=== PATIENT | female | born 1945 | race Caucasian/White ===

== ENCOUNTER → 2016-07-04 | Outpatient (CLI) | payer OTHER, MEDICARE ==
[~2016-07-04] MED LIST: DIPH1TAB87 PO; EPP3/2 IM; ZNTT/150 PO
--- NOTE | 2016-07-04 16:38 | MAMMOGRAPHY REPORT ---
BILATERAL DIGITAL SCREENING MAMMOGRAM WITH CAD: 07/04/2016 CLINICAL HISTORY: Routine screening examination. TECHNIQUE: Bilateral CC and MLO views were obtained. Current study was also evaluated with a Comput er Aided Detection (CAD) system. COMPARISON: Comparison is made to exams dated: 06/18/2015 mammogram, 05/09/2014 mammogram, 04/15/2013 m ammogram, 04/01/2013 mammogram, 02/20/2012 mammogram, and 01/21/2011 mammogram - [facility]. BREAST COMPOSITION: There are scattered areas of fibroglandular density in both breasts. FINDINGS: The parenchymal pattern is similar to prior mammograms. No developing mass, architectura l distortion or cluster of suspicious microcalcifications is seen in either breast. IMPRESSION: ACR BI-RADS CATEGORY 2: BENIGN There is no mammographic evidence of malignancy. A 1 year screening mammogram is recommended. The p atient will receive written notification of the results. Approximately 10% of breast cancers are not detected with mammography. A negative mammographic repor t should not delay biopsy if a clinically suggestive mass is present. Samaria Melendez M.D. ay/:07/04/2016 16:07:56 [employer] Meat Presser: Summer CHUNG(Veronica)(Rey), [facility] letter sent: Normal 1/2 BI-RADS Code: ACR BI-RADS Category 2: Benign
== END | disposition home or self-care (01) ==
LOC: C.MAMM 08:44
PROVIDERS: ATTEND Family Medicine
DX: Z12.31 Encounter for screening mammogram for malignant neoplasm of breast (principal)

== ENCOUNTER → 2016-07-29 | Outpatient (CLI) | payer OTHER, MEDICARE ==
[2016-07-29 13:39] LABS: URINE APPEARANCE CLEAR (CLEAR); URINE BILIRUBIN NEG (NEG); URINE COLOR YELLOW; URINE EPITHELIAL CELL AUTO 0-5 /lpf (0-5); URINE NITRITE NEG (NEG); URINE SPECIFIC GRAVITY 1.011 (1.000-1.030); UROBILINOGEN NEG (NEG)
[2016-07-29 13:44] LABS: MANUAL MICROSCOPIC REQUIRED? NO; REVIEW REQ? NO
== END | disposition home or self-care (01) ==
LOC: C.LABMFLN 10:46
PROVIDERS: ATTEND Family Medicine
DX: R30.0 Dysuria (principal)

== ENCOUNTER → 2016-08-15 | Outpatient (CLI) | payer OTHER, MEDICARE ==
[2016-08-15 17:58] LABS: URINE APPEARANCE CLEAR (CLEAR); URINE BILIRUBIN NEG (NEG); URINE COLOR YELLOW; URINE NITRITE NEG (NEG); URINE PH 5.5 (4.5-7.5); URINE SPECIFIC GRAVITY 1.018 (1.000-1.030); UROBILINOGEN NEG (NEG)
[2016-08-15 18:03] LABS: MANUAL MICROSCOPIC REQUIRED? NO; REVIEW REQ? YES
== END | disposition home or self-care (01) ==
LOC: C.LABMFLN 18:22
PROVIDERS: ATTEND Family Medicine
DX: R31.29 Other microscopic hematuria (principal)

== ENCOUNTER → 2016-11-14 | Outpatient (CLI) | payer OTHER, MEDICARE | END | disposition home or self-care (01) | LOC: C.PAPS 08:58 | PROVIDERS: ATTEND Obstetrics & Gynecology | DX: Z12.4 Encounter for screening for malignant neoplasm of cervix (principal) ==

== ENCOUNTER → 2017-03-13 | Day surgery (SDC) | payer OTHER, MEDICARE ==
[2017-02-16 15:42] VITALS: Ht 165.1 cm; Wt 80.5 kg
--- NOTE | 2017-03-10 08:27 | HISTORY & PHYSICAL EXAMINATION ---
DATE OF ADMISSION: 03/13/2017 The patient is for a surgery on 03/13/2017. CHIEF COMPLAINT: Thickened endometrium. HISTORY OF PRESENT ILLNESS: The patient is a 71-year-old old white female 1, para 0 who has been menopausal since age 40. The patient underwent a CT scan in 2014 and was noted to have a thickened endometrial lining. Ultrasound done in March 2015 confirmed this and showed a lining of anywhere from 11-14 mm. No further evaluation was done until repeat ultrasound in November 2016 and the endometrial lining was noted to be 12 mm with some cystic changes. A mass cannot be ruled out and is indeed suspected. The patient denies any vaginal bleeding or pelvic pain. We have discussed the options of continued expectant management as she is asymptomatic versus confirmation of the mass with hysterosonogram versus proceeding to hysteroscopy, D&C. The patient did have a Pap smear in November 2016 and this is negative. She has no family history of uterine cancer. ALLERGIES: THE PATIENT REPORTS ALLERGIES TO CIPRO, PENICILLINS, SULFA DRUGS, EGGS, LATEX, PEANUTS AND SHELLFISH. MEDICATIONS: She takes amlodipine 5 mg 1 tablet daily, ranitidine 300 mg 1 tablet daily as needed. She also uses Premarin vaginal cream every other night in addition to Proctosol HC 2.5% rectal cream applied 3 times daily as needed and also she has an EpiPen to use should she develop an allergic reaction. PAST SURGICAL HISTORY: She is status post laparoscopic cholecystectomy. She has also had an ovarian cystectomy in the past as well as D&C. She has had wisdom teeth removed as well. She had retina surgery in 2008 and surgery for cataract in 2014. ILLNESSES: The patient has had cervical radiculopathy. She also has a history of colon polyps. She does have a history of GERD as well as a history of hypertension and hyperlipidemia. FAMILY HISTORY: Her mother had heart disease. Her father had colon polyps and also history of myocardial infarction. SOCIAL HISTORY: The patient drinks 2 alcoholic drinks per month. She was a smoker, but quit smoking in 1992. PHYSICAL EXAMINATION: VITAL SIGNS: Height 5 feet 5 inches, weight 178 pounds, blood pressure 162/90. HEENT: Grossly within normal limits. NECK: Supple without masses. CHEST: Her lungs are clear with no wheezing. HEART: Regular rate and rhythm. No murmurs, gallops or rubs. ABDOMEN: Soft and nontender with no masses or hernias. PELVIC: External genitalia normal. Vagina pink and smooth. Cervix was normal with no unusual discharge. Uterus within normal limit size, nontender, adnexa nontender with no masses palpable. EXTREMITIES: No cyanosis, clubbing or edema. IMPRESSION: A 71-year-old menopausal white female with thickened endometrium with a suggestion of endometrial mass. PLAN: The patient is for hysteroscopy, dilation of the cervix and curettage with possible removal of polyp/lesion. The patient is aware of the risks of bleeding, infection, perforation of the uterus, possible need for further treatment. I did discuss with her that her risk of surgery and her benefit may be about equal. The patient prefers to proceed with the surgery. She feels she would prefer to take the risks of surgery for a definitive diagnosis. ROXY
[~2017-03-13] VITALS: Ht 165.1 cm; Wt 80.5 kg
[~2017-03-13] MED LIST changes: +AMLO-110 PO; +ATROPINE SULFATE 0.1 MG/ML 5ML SYR IV PRN; +DEXAMETHASONE SOD INJ 4 MG/ML VIAL ONE; +EpHEDrine SULFATE INJ 50 MG/ML AMP IV PRN; +FENTANYL CITRATE INJ 50 MCG/1 ML 2 ML VIAL IV PRN; +FENTANYL CITRATE INJ 50 MCG/1 ML 2 ML VIAL ONE; +HYDROmorphone INJ 1 MG/ML SYR IV PRN; +IBUPROFEN 200 MG TAB ONE; +IBUPROFEN 600 MG TAB PO PRN; +LACTATED RINGER'S 1000ML 1,000 ML IV SCH; +LIDOCAINE HCL 2% 2 ML VIAL (20MG/ML) ONE; +MIDAZOLAM HCL 1 MG/ML 2ML VIAL ONE; +ONDANSETRON INJ 2 MG/ML 2 ML VIAL IV PRN; +ONDANSETRON INJ 2 MG/ML 2 ML VIAL ONE; +PROPOFOL IV EMULSION 10 MG/ML 20 ML VIAL IV ONE; +SODIUM CHLORIDE 0.9% 1000ML 1,000 ML IV SCH
--- NOTE | 2017-03-13 06:53 | History & Physical Bridge - SC ---
H&P Re-Evaluation Bridge Note: I have examined the patient, reviewed the History & Physical and in the interval since the performance of the History & Physical I have noted the following changes of clinical significance: No changes noted
--- NOTE | 2017-03-13 07:35 | [facility] Post Operative Brief Note ---
Immediate Operative Summary Operative Date Mar 13, 2017. Pre-Operative Diagnosis Thickened endometrium Post-Operative Diagnosis Same as preop Procedure(s) Performed Dilatation And Curettage, Hysteroscopy Surgeon Dr. Poe Energy Conservation Specialist Surgeon(s) None Estimated Blood Loss 20 mL Findings See dictated note. Specimens A: Endocervical curettings B: Endometrial curettings Complication(s) None Disposition Recovery Room / PACU
--- NOTE | 2017-03-13 07:45 | Discharge Instructions-SurgCtr ---
Discharge Instructions Date of Service Mar 13, 2017. Visit Reason for Visit: Thickened Endometrium Discharge Discharge Diagnosis / Problem: S/P Hysteroscopy, Dilation and Curettage Discharge Goals Goal(s): Diagnostic testing Activity Recommendations Activity Limitations: per Instructions/Follow-up section Anesthesia . Post Anesthesia Instructions: If you have had General Anesthesia or IV Sedation: * Do not drive today. * Resume driving when surgeon permits. * Do not make important decisions or sign legal documents today. * Call surgeon for: 1. Temperature elevations greater than 101 degrees F. 2. Uncontrollable pain. 3. Excessive bleeding. 4. Persistent nausea and vomiting. 5. Medication intolerance (nausea, vomiting or rash). * For nausea and vomiting use only clear liquids such as: tea, soda, bouillon until nausea subsides, then gradually increase diet as tolerated. * If you have any concerns or questions, call your surgeon's office. If physician is unavailable and it is an emergency, call 911 or go to the nearest emergency room. . Instructions / Follow-Up Instructions / Follow-Up ACTIVITY RECOMMENDATIONS: * Avoid tampons, douching, hot tubs, pools, and intercourse until bleeding has stopped. * May shower as usual. * No strenuous activity for 24-48 hours. After 24-48 hours, you may do anything you feel like doing (driving and sports are okay). SPECIAL CARE INSTRUCTIONS: Special Diet: * Mild nausea may occur in the immediate post-operative period. * Take clear liquids such as tea, cola or bouillon until all nausea has subsided; you may then resume your normal diet. Special Care: * Light bleeding and vaginal spotting can last from a few days to 3-4 weeks. Call your doctor if bleeding becomes heavier than the heaviest part of your period. * Check your temperature twice a day for one week. If it goes above 100.4 degrees Fahrenheit (38.0 Celsius), notify your doctor. Call the office if you have severe persistent cramping, or develop a foul vaginal discharge. * Call your doctor's office for an appointment for 2-4 weeks after your surgery. [phone] FOLLOW-UP VISIT: Call your doctor's office for an appointment with Dr Poe for 2-4 weeks after your surgery. [phone] Diet Recommendations Home Diet: resume previous diet Procedures Procedures Performed: Dilatation And Curettage, Hysteroscopy Pending Studies Studies pending at discharge: yes List of pending studies: The office will call you with the pathology report. We should call you in about a week. Medical Emergencies . Who to Call and When: Medical Emergencies: If at any time you feel your situation is an emergency, please call 911 immediately. . Non-Emergent Contact Non-Emergency issues call your: Deputy Assessor Call Non-Emergent contact if: temperature is above 100.5, your pain is worsening, you have any medication questions . . "Provider Documentation" section prepared by Jesica Poe. .
--- NOTE | 2017-03-13 07:57 | OPERATIVE REPORT ---
DATE OF OPERATION: 03/13/2017 PREOPERATIVE DIAGNOSIS: Thickened endometrium. POSTOPERATIVE DIAGNOSIS: Same with pathology pending. PROCEDURE: Hysteroscopy and dilation and curettage of the uterus. SURGEON: Jesica Poe MD. ANESTHESIA: General. ANESTHESIOLOGIST: Dr. Duran. DESCRIPTION OF PROCEDURE: The patient was taken to the operating room where general anesthesia was administered. After an adequate level was obtained, she was placed in dorsal lithotomy position. Vulva, vagina, and cervix were prepped with Betadine solution. The patient was draped. Chahal retractor was placed in the posterior fornix of the vagina. The anterior lip of the cervix was grasped with an Allis clamp. Prior to placement of the Chahal retractor, the patient's bladder was drained with a straight catheter. Endocervical curettings were obtained which were primarily mucus. Cervix was then dilated up to a #23. Hysteroscope was introduced into the endometrial cavity. Photos were taken. There were no obvious endometrial masses present. Small sharp curette was then introduced into the cavity and the cavity curetted for a small amount of tissue. Small polyp forceps were then used and some additional bits of tissue obtained. The endometrial cavity was examined with the hysteroscope again and there were a few fragments of tissue remaining. A curettage was carried out once more and small polyp forceps were used once again to obtain some additional small pieces of tissue. These were sent to pathology along with the endocervical curettings. The cavity was examined further. It was in essence empty. At this point, the procedure was ended. Estimated blood loss at maximum was 20 mL. The patient tolerated the procedure well and was taken to the recovery room in good condition. I attest to the content of the Intraoperative Record and any orders documented therein. Any exceptions are noted below. MTDD
[2017-03-13 08:33] VITALS: TEMP 36.2
[2017-03-13 09:00] VITALS: BP 155/85; PULSE 79; O2SAT 96
--- NOTE | 2017-03-13 09:14 | Anesthesia Progress Nt - [facility] ---
Anesthesia Post Op Note Date & Time Mar 13, 2017 at 09:13 Vital Signs Pain Intensity: 5.0 Vital Signs Past 12 Hours Date Time Temp Pulse Resp B/P (MAP) Pulse Ox O2 Delivery O2 Flow Rate FiO2 03/13/17 09:00 79 18 155/85 (108) 96 Room Air 03/13/17 08:33 36.2 83 18 160/79 (106) 94 Room Air 03/13/17 08:24 76 13 93 03/13/17 08:24 76 13 03/13/17 08:23 74 13 03/13/17 08:23 74 13 93 03/13/17 08:22 78 12 94 03/13/17 08:22 78 12 03/13/17 08:21 152/77 03/13/17 08:18 76 12 03/13/17 08:18 73 12 94 03/13/17 08:17 36.7 78 16 152/77 95 Room Air 03/13/17 08:16 143/76 03/13/17 08:13 75 19 03/13/17 08:13 76 19 95 03/13/17 08:12 77 14 94 03/13/17 08:12 79 14 03/13/17 08:11 146/77 03/13/17 08:10 79 14 94 03/13/17 08:10 80 14 03/13/17 08:09 77 14 03/13/17 08:09 76 14 95 03/13/17 08:08 77 19 03/13/17 08:08 76 19 94 03/13/17 08:06 150/81 03/13/17 08:03 77 24 96 03/13/17 08:03 79 24 03/13/17 08:02 83 15 95 03/13/17 08:02 82 15 03/13/17 08:01 163/75 03/13/17 07:57 78 26 99 03/13/17 07:57 78 26 03/13/17 07:56 152/83 03/13/17 07:54 78 14 03/13/17 07:54 78 14 99 03/13/17 07:50 152/83 03/13/17 07:49 79 17 99 03/13/17 07:49 80 17 03/13/17 07:46 137/73 03/13/17 07:45 143/70 03/13/17 07:44 36.6 86 16 143/70 99 Mask 8 03/13/17 06:32 36.6 94 16 177/93 (121) 98 Room Air Notes Mental Status: alert / awake / arousable, participated in evaluation Pt Amnestic to Procedure: Yes Nausea / Vomiting: adequately controlled Pain: adequately controlled Airway Patency, RR, SpO2: stable & adequate BP & HR: stable & adequate Hydration State: stable & adequate Anesthetic Complications: no major complications apparent
== END | disposition home or self-care (01) ==
LOC: X.SURG 06:07
PROVIDERS: ATTEND Obstetrics & Gynecology
DX: R93.8 Abnormal findings on diagnostic imaging of other specified body structures (principal); I10 Essential (primary) hypertension; F41.9 Anxiety disorder, unspecified; M19.90 Unspecified osteoarthritis, unspecified site; Z90.49 Acquired absence of other specified parts of digestive tract; Z88.0 Allergy status to penicillin; Z88.2 Allergy status to sulfonamides; Z91.010 Allergy to peanuts; Z91.012 Allergy to eggs; Z91.040 Latex allergy status; Z98.890 Other specified postprocedural states; Z98.818 Other dental procedure status

== ENCOUNTER → 2017-04-14 | Outpatient (CLI) | payer OTHER, MEDICARE ==
[~2017-04-14] MED LIST changes: -ATROPINE SULFATE 0.1 MG/ML 5ML SYR IV PRN; -DEXAMETHASONE SOD INJ 4 MG/ML VIAL ONE; -EpHEDrine SULFATE INJ 50 MG/ML AMP IV PRN; -FENTANYL CITRATE INJ 50 MCG/1 ML 2 ML VIAL IV PRN; -FENTANYL CITRATE INJ 50 MCG/1 ML 2 ML VIAL ONE; -HYDROmorphone INJ 1 MG/ML SYR IV PRN; -IBUPROFEN 200 MG TAB ONE; -IBUPROFEN 600 MG TAB PO PRN; -LACTATED RINGER'S 1000ML 1,000 ML IV SCH; -LIDOCAINE HCL 2% 2 ML VIAL (20MG/ML) ONE; -MIDAZOLAM HCL 1 MG/ML 2ML VIAL ONE; -ONDANSETRON INJ 2 MG/ML 2 ML VIAL IV PRN; -ONDANSETRON INJ 2 MG/ML 2 ML VIAL ONE; -PROPOFOL IV EMULSION 10 MG/ML 20 ML VIAL IV ONE; -SODIUM CHLORIDE 0.9% 1000ML 1,000 ML IV SCH
[2017-04-14 12:39] LABS: BASO % 0.5 %; BASO ABS # 0.03 K/uL (0-0.2); EOS % 2.6 %; EOS ABS # 0.17 K/uL (0-0.5); HEMATOCRIT 42.3 % (37-47); HEMOGLOBIN 14.5 g/dL (12.0-16.0); IG# 0.01 K/uL (0.00-0.02); LYMPH % 27.7 %; LYMPH ABS # 1.83 K/uL (1.2-3.4); MEAN CELL VOLUME 87.8 fL (80-100); MEAN CORPUSCULAR HEMOGLOBIN 30.1 pg (25-34); MEAN CORPUSCULAR HGB CONC 34.3 g/dl (32-36); MONO % 8.6 %; MONO ABS # 0.57 K/uL (0.11-0.59); NEUT % 60.4 %; PLATELET COUNT 186 K/uL (130-400); RED CELL DISTRIBUTION WIDTH CV 13.3 % (11.5-14.5); RED CELL DISTRIBUTION WIDTH SD 42.9 fL (36.4-46.3); WHITE BLOOD COUNT 6.61 K/uL (4.8-10.8)
[2017-04-14 13:31] LABS: BLOOD UREA NITROGEN 18 mg/dl (7-18); CALCIUM 9.2 mg/dl (8.5-10.1); CARBON DIOXIDE 26 mmol/L (21-32); CREATININE 0.99 mg/dl (0.60-1.20); GLUCOSE 126 mg/dl (70-99); POTASSIUM 4.1 mmol/L (3.5-5.1); SODIUM 138 mmol/L (136-145)
== END | disposition home or self-care (01) ==
LOC: C.LABMFLN 10:07
PROVIDERS: ATTEND Family Medicine
DX: R42 Dizziness and giddiness (principal)

== ENCOUNTER → 2017-04-21 | Outpatient (CLI) | payer OTHER, MEDICARE ==
[2017-04-21 14:26] LABS: GLUCOSE,FASTING 116 mg/dl (70-99)
== END | disposition home or self-care (01) ==
LOC: C.LABMFLN 09:30
DX: R73.09 Other abnormal glucose (principal)

== ENCOUNTER → 2017-07-07 | Outpatient (CLI) | payer OTHER, MEDICARE ==
[~2017-07-07] MED LIST changes: +RANI150T85 PO; -ZNTT/150 PO
--- NOTE | 2017-07-07 15:37 | MAMMOGRAPHY REPORT ---
BILATERAL DIGITAL SCREENING MAMMOGRAM TOMOSYNTHESIS WITH CAD: 07/07/2017 CLINICAL HISTORY: Routine screening. Patient has no complaints. TECHNIQUE: Breast tomosynthesis in addition to standard 2D mammography was performed. Current study was also evaluated with a Computer Aided Detection (CAD) system. COMPARISON: Comparison is made to exams dated: 07/04/2016 mammogram, 06/18/2015 mammogram, 05/09/2014 [facility] mogram, 04/15/2013 mammogram, 04/01/2013 mammogram, and 02/20/2012 mammogram - [facility]. BREAST COMPOSITION: There are scattered areas of fibroglandular density in both breasts. FINDINGS: No suspicious masses, calcifications, or areas of architectural distortion are noted in ei ther breast. There has been no significant interval change compared to prior exams. IMPRESSION: ACR BI-RADS CATEGORY 1: NEGATIVE There is no mammographic evidence of malignancy. A 1 year screening mammogram is recommended. The pa tient will receive written notification of the results. Approximately 10% of breast cancers are not detected with mammography. A negative mammographic report should not delay biopsy if a clinically suggestive mass is present. Kellie Watt M.D. /:07/07/2017 14:40:39 Lab Support Tech: Alexandria Ness [facility] letter sent: Normal 1/2 BI-RADS Code: ACR BI-RADS Category 1: Negative
== END | disposition home or self-care (01) ==
LOC: C.MAMM 14:08
PROVIDERS: ATTEND Family Medicine
DX: Z12.31 Encounter for screening mammogram for malignant neoplasm of breast (principal); R31.29 Other microscopic hematuria

== ENCOUNTER → 2017-08-03 | Outpatient (CLI) | payer OTHER, MEDICARE | END | disposition home or self-care (01) | LOC: C.LABMFLN 12:17 | PROVIDERS: ATTEND Family Medicine | DX: R39.15 Urgency of urination (principal) ==